=== PATIENT | male | born 1975 | race Hispanic/Latino ===

== ENCOUNTER 2017-10-01 21:33 | Inpatient (IN) | payer MEDICAID ==
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
[2017-10-02 00:35] VITALS: O2SAT 100
--- NOTE | 2017-10-02 05:36 | PCM.BM ---
<Kim Carmonanaresh - Last Filed: 10/02/17 05:33> Treatment Plan Problems - Problems identified on initial assessmt Hopelessness/Helplessness Date Initiated: 10/02/17 Time Initiated: 05:34 Assessment reference: NA Status: Active Feelings of Worthlessness Date Initiated: 10/02/17 Time Initiated: 05:34 Assessment reference: NA Status: Active Ineffective Coping Date Initiated: 10/02/17 Time Initiated: 05:34 Assessment reference: NA Status: Active Social Isolation Date Initiated: 10/02/17 Time Initiated: 05:35 Assessment reference: NA Status: Active Treatment assets and liabiliti Patient Assests: cooperative, self-reliant, ADL independent, negotiates basic needs, cognitively intact Patient Liabilities: live alone, physical pain, financial problems, poor support system, substance abuse, medical problems - Milieu Protocol Maintain good personal hygiene: daily Encourage regular showers, daily Remind patient to perform daily oral care, daily Assist patient to perform ADL's Conduct patient checks and document Observation sheet: Q15 minutes Maintain personal safety: every shift Educate patient to report safety concerns to staff, every shift Monitor environment for contraband/sharps Medication safety: Monitor for expected outcome, potential side effects: every shift, Assess barriers to learning: every shift, Assess readiness for medication education: every shift Discharge/Continuing Care - Education Needs Education Needs: Patient Medication, Patient Diagnosis/Disease Process, Patient Coping Skills, Patient Anger Management skills, Patient Placement options, Patient Community resources, Patient Activities of Daily Living, Patient Pain, Patient Nutrition, Patient Health Practices/Safety, Patient Personal Hygiene/ Grooming, Patient Aftercare Safety Plan - Discharge Discharge Criteria: Tolerates medication w/o severe side effects, Free of Suicidal thoughts, Free of Homicidal thoughts, Free of paranoid thoughts, Free of agitation, Normal sleep pattern, Ability to care for self <Gale Britt - Last Filed: 10/02/17 09:11> - Diagnosis (1) MDD (major depressive disorder) Status: Acute Interventions: 10/02/17 09:11 Major Depression: Psychoeducation Psychopharmacology/adjustment of medications as needed/ monitoring possible side effects Evaluate pt on daily basis Compliance with medications and follow up appointments Suicide and homicide risk assessment and prevention Relapse prevention Reduction of symptoms Improve functional status Family involvement As outpatient: cognitive behavioral therapy (2) Polysubstance abuse Status: Acute Interventions: 10/02/17 09:12 Monitoring withdrawal symptoms Medical detoxification Pharmacotherapy for alcohol/benzos/opioid dependence Maintaining sobriety Relapse prevention Possible rehabilitation Motivational interviewing 12-step programs: AA meetings <Octavia Vallejo - Last Filed: 10/02/17 17:26> Family Contact Family involvement: Patient does not wish Family/SO involvement <Sherry Brooks - Last Filed: 10/05/17 15:46>
[2017-10-02 06:50] LABS: GLUCOSE,FASTING 89 mg/dL (65-110); HDL CHOLESTEROL 42 mg/dL (29-60)
[2017-10-02 06:59] VITALS: RESP 20
[2017-10-02 07:00] LABS: LDL CHOLESTEROL 88 mg/dL (0-129)
[2017-10-02] MEDS: Multivitamin Therapeutic Tab PO SCH (08:54)
[2017-10-02] MEDS: Divalproex 250 mg DR (BID formulation) PO SCH ×2 (08:54→16:35)
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
--- NOTE | 2017-10-02 16:29 | CON ---
DATE: HISTORY OF PRESENT ILLNESS: I was called to the Psych unit to do medical consult on this young man. He is a 42-year-old white male who comes to the hospital overdosed on crystal methamphetamine and he was depressed, not feeling well and just overall very depressed. PAST MEDICAL HISTORY: Substance abuse, alcohol abuse, spinal injury in the past. He uses everything when it comes to substance abuse. FAMILY HISTORY: No known family history. SOCIAL HISTORY: Former smoker. No alcohol, but drugs. He is all over the place with that. ALLERGIES: NO KNOWN DRUG ALLERGIES. NO KNOWN DRUG MEDS. REVIEW OF SYSTEMS: He has no fevers, no shortness of breath or cough. No chest pain or palpitations. No diarrhea, nausea, or vomiting. No problems urinating. No back pain at this time. No neck pain at this time. Although, he does have a back injury. No headache or dizziness. He is just in bed, tired, depressed. PHYSICAL EXAMINATION: GENERAL: He is well appearing, nontoxic, comfortable. Alert and oriented x3 at this time. VITAL SIGNS: Temperature 97.6, 59 pulse, 18 respiratory rate, 102/68 blood pressure, 99% O2 saturation on room air. HEENT: His head is atraumatic, normocephalic. Extraocular muscles are intact. Pupils are equal and reactive to light. His teeth are badly crystal meth. Throat is moist. NECK: Supple. HEART: Regular rate. Normal S1, S2. LUNGS: Decreased breath sounds bilaterally, but clear. No wheezes, rhonchi, or rales. ABDOMEN: Soft, nontender. Positive bowel sounds. EXTREMITIES: No edema. NEUROLOGIC: GCS is 15. Cranial nerves II-XII grossly intact. Normal speech. SKIN: Warm and dry. Fair turgor. PSYCHIATRIC: Alert and oriented x3. LYMPHATICS: Thyroid midline. No palpable appreciable lymphadenopathy. LABORATORY DATA: He has tests that were done. He has an 89 fasting sugar, 82 triglycerides, 166 cholesterol, 88 LDL, HDL 42, TSH is 1.38. He has a toxicology of alcohol less than 10, that is what I did. I ordered a complete blood test and a urine test and we will see how he does. ASSESSMENT: Presently, he is just depressed as per Psychiatry. Currently they have him on Ativan, Depakote, folic acid, Geodon, Librium, Pepcid, Prozac, Remeron, Risperdal, Sonata, Thera-Tabs, and vitamin B1 and hopefully, he will continue to improve with his depression and not use any more drugs in the future. We will follow. Sergio Cobb DO MTDMandi
[2017-10-03 07:14] LABS: HEMOGLOBIN 13.9 g/dL (14.0-18.0); MEAN CELL VOLUME 90.2 fl (80.0-105.0); MEAN CORPUSCULAR HEMOGLOBIN 30.9 pg (25.0-35.0); MEAN CORPUSCULAR HGB CONC 34.2 g/dl (31.0-37.0); MEAN PLATELET VOLUME 9.1 fl (7.0-11.0); RBC 4.5 10^6/uL (3.5-6.1); RED CELL DISTRIBUTION WIDTH 13.4 % (11.5-14.5); WHITE BLOOD COUNT 9.3 10^3/ul (4.5-11.0)
[2017-10-03 07:35] LABS: ALB/GLOB RATIO 1.4 (1.1-1.8); ALT/SGPT 29 U/L (7-56); AST/SGOT 24 U/L (17-59); BLOOD UREA NITROGEN 26 mg/dL (7-21); CALCIUM 8.9 mg/dL (8.4-10.5); GFR AFRICAN-AMERICAN > 60; GFR NON-AFRICAN AMERICAN > 60
[2017-10-03] MEDS: Divalproex 250 mg DR (BID formulation) PO SCH ×2 (08:34→16:21)
[2017-10-03] MEDS: Multivitamin Therapeutic Tab PO SCH (08:35)
--- NOTE | 2017-10-03 09:07 | PCM.PYCHPN ---
Psychiatric Progress Note - Psychiatric Progress Note Patient seen today, length of contact: 25 min Problems Identified/Issues Discussed: I reviewed assessment and recent notes. Patient has generally kept a low profile on the unit. He is a little labile and irritable but there have been no major behavioral issues. He is oriented x3 during my visit today. He denies any new concerns, discomfort or pain. Appearance is unkempt. Patient reports that he has been sleeping well. Thought process is coherent and responses are brief, mildly disengaged but consistently relevant to questioning. Delusions were not elicited. Diagnostic Results: rule out major depressive disorder Rule out substance-induced mood disorder Polysubstance abuse and dependence Alcohol use disorder Rule out antisocial personality disorder Substance-induced psychosis r/o bipolar disorder Medication Change: No Medical Record Reviewed: Yes Mental Status Examination - Cognitive Function Orientation: Person, Place, Situation, Time - Mood Mood: Depressed, Anxious - Affect Affect: Flat - Formal Thought Process Formal Thought Process: No Impairment Goal/Treatment Plan - Goal/Treatment Plan Progress Toward Problem(s) and Goals/Treatment Plan: * c/w current tx and plan * Reviewed recent vitals, noted below: Selected Entries 10/03/17 06:39 Temperature 97.7 F Pulse Rate 59 L Respiratory 20 Rate Blood Pressure 97/57 L * New weekend lab results Laboratory Results - last 24 hr 10/02/17 10/03/17 10/03/17 06:00 07:00 07:00 WBC 9.3 RBC 4.50 Hgb 13.9 L Hct 40.6 L MCV 90.2 MCH 30.9 MCHC 34.2 RDW 13.4 Plt Count 326 MPV 9.1 Sodium 140 Potassium 4.2 Chloride 103 Carbon Dioxide 27 Anion Gap 14 BUN 26 H Creatinine 0.8 Est GFR ( Amer) > 60 Est GFR (Non-Af Amer) > 60 Random Glucose 83 Calcium 8.9 Total Bilirubin 0.2 AST 24 ALT 29 Alkaline Phosphatase 56 Total Protein 6.9 Albumin 4.0 Globulin 2.9 Albumin/Globulin Ratio 1.4 RPR Nonreactive noted below:
--- NOTE | 2017-10-03 13:53 | PN ---
DATE: 10/03/2017 SUBJECTIVE: I saw him resting comfortably in bed. He slept well. He is starting to feel better. He is on a lot of Ativan 2 mg IM He is on Depakote, folic acid, Geodon, Librium, Pepcid, Prozac, Remeron, Risperdal, Sonata, Thera-Tabs and vitamin B1. He is eating well, he is walking well, improving well. No chest pain, shortness of breath or abdominal pain. OBJECTIVE: VITAL SIGNS: Temperature is 97.7, 90 pulse, 97/57 blood pressure, 20 respiratory rate, 100% O2 sat on room air. HEENT: His head is atraumatic, normocephalic. HEART: Regular rate. LUNGS: Decreased breath sounds, but clear. ABDOMEN: Soft. EXTREMITIES: No edema. DATA: He has a 9.3 white count, 13.9 hemoglobin, 40.6 hematocrit with 326 platelets. He has 140 sodium, potassium 4.2, BUN 26, creatinine 0.8. GFR is greater than 60. Sugar is 83, calcium is 8.9, total bili is 0.2. AST is 24, ALT is 29, alkaline phosphatase is 56, total protein 6.9. Thyroid is 1.38. RPR is nonreactive. He has to drink a little more water. He is a little bit renal insufficient so he will be instructed to drink more water. We will continue with aggressive treatment and care as per Psychiatry. He had major depression, polysubstance abuse, renal insufficiency, a little dehydration. We will continue with aggressive treatment and care. We will follow. Sergio Cobb DO [facility]
[2017-10-03 16:23] LABS: URINE BILIRUBIN NEGATIVE (NEGATIVE); URINE BLOOD NEGATIVE (NEGATIVE); URINE GLUCOSE (UA) NEGATIVE (NEGATIVE); URINE LEUKOCYTE ESTERASE NEGATIVE Leu/uL (NEGATIVE); URINE PROTEIN NEGATIVE mg/dL (<30 mg/dL); URINE UROBILINOGEN 0.2 E.U./dL (<1 E.U./dL)
[2017-10-03 16:25] LABS: URINE APPEARANCE CLEAR (CLEAR); URINE COLOR YELLOW (YELLOW)
[2017-10-04] MEDS: Multivitamin Therapeutic Tab PO SCH (08:59)
[2017-10-04] MEDS: Divalproex 250 mg DR (BID formulation) PO SCH ×2 (08:59→16:19)
--- NOTE | 2017-10-04 09:15 | PCM.PYCHPN ---
Psychiatric Progress Note - Psychiatric Progress Note Patient seen today, length of contact: 25 min Patient Chief Complaint: "still depressed" Problems Identified/Issues Discussed: I reviewed recent notes. Patient has generally kept a low profile on the unit. He attends groups without much engagement and there have been no major behavioral issues. He remains unkempt and oriented x3 during my visit today. Remains depressed but not suicidal. Reports minimal improvement in symptoms and states "it's too early to tell if the medications are helping". He does report that he is sleeping well and denies any new side effects, discomfort or pain. Thought process is coherent and responses are brief, mildly disengaged but consistently relevant to questioning. Delusions were not elicited. Diagnostic Results: rule out major depressive disorder Rule out substance-induced mood disorder Polysubstance abuse and dependence Alcohol use disorder Rule out antisocial personality disorder Substance-induced psychosis r/o bipolar disorder Medication Change: No Medical Record Reviewed: Yes Mental Status Examination - Cognitive Function Orientation: Person, Place, Situation, Time Attention: WNL Concentration: WNL Association: Loose Fund of Knowledge: Poor - Mood Mood: Depressed, Anxious - Affect Affect: Flat - Speech Speech: Appropriate - Formal Thought Process Formal Thought Process: No Impairment - Suicidal Ideation Suicidal Ideation: No - Homicidal Ideation Homicidal Ideation: No Goal/Treatment Plan - Goal/Treatment Plan Progress Toward Problem(s) and Goals/Treatment Plan: * c/w current tx and plan * Appreciate f/u by Dr. Cobb on 10/03/17 * Reviewed recent vitals, noted below: Selected Entries 10/03/17 10/03/17 06:39 16:42 Temperature 97.7 F Pulse Rate 59 L 66 Respiratory 20 Rate Blood Pressure 97/57 L 103/65 * New weekend lab results Laboratory Results - last 24 hr 10/02/17 10/03/17 10/03/17 06:00 07:00 07:00 WBC 9.3 RBC 4.50 Hgb 13.9 L Hct 40.6 L MCV 90.2 MCH 30.9 MCHC 34.2 RDW 13.4 Plt Count 326 MPV 9.1 Sodium 140 Potassium 4.2 Chloride 103 Carbon Dioxide 27 Anion Gap 14 BUN 26 H Creatinine 0.8 Est GFR ( Amer) > 60 Est GFR (Non-Af Amer) > 60 Random Glucose 83 Calcium 8.9 Total Bilirubin 0.2 AST 24 ALT 29 Alkaline Phosphatase 56 Total Protein 6.9 Albumin 4.0 Globulin 2.9 Albumin/Globulin Ratio 1.4 RPR Nonreactive
--- NOTE | 2017-10-04 10:22 | PN ---
DATE: 10/04/2017 SUBJECTIVE: I saw him during breakfast, he slept very well last night. He is in good spirits. He has no new complaints except that he needs a pair of pants. He says he came to the hospital without any pants, he has to understand that. He is on Ativan, Depakote, folic acid, Geodon, Librium, Pepcid, Prozac, Remeron, Risperdal, Sonata, Thera-Tabs and vitamin B1. He is eating well. He is feeling better, more refreshed and thinking better and slept well. PHYSICAL EXAMINATION: VITAL SIGNS: 97.5 temp, 60 pulse, 89/51 blood pressure, 20 respiratory rate. HEENT: Head is atraumatic, normocephalic. HEART: Regular rate. LUNGS: Decreased breath sounds. ABDOMEN: Soft. EXTREMITIES: No edema. LABORATORY DATA: He had labs yesterday, he did fairly well. PLAN: He is being seen by Psychiatry and had adjusted his medicines. I discussed this with the nurse to see if we get him a pair of pants and I encouraged him to participate, take the medications. I am glad at this time to feel better, and he will continue to eat well. We will follow up. Sergio Cobb DO
[2017-10-05 07:33] VITALS: TEMP 97.6
[2017-10-05] MEDS: Divalproex 250 mg DR (BID formulation) PO SCH ×2 (08:57→18:45)
[2017-10-05] MEDS: Multivitamin Therapeutic Tab PO SCH (08:57)
--- NOTE | 2017-10-05 09:01 | PN ---
DATE: 10/05/2017 SUBJECTIVE: I saw him resting comfortably in bed. He slept fairly well. He still did not get his pants. He came in without pants, I am not sure why. Could be from all the drugs he was doing. He is on Ativan, Depakote, folic acid, Geodon, Librium, Pepcid, Prozac, Remeron, Risperdal, Sonata, Thera-Tabs, vitamin B. He tells me he is feeling better. PHYSICAL EXAMINATION: VITAL SIGNS: 97.6 temp, 52 pulse, 101/65 blood pressure, 20 respiratory rate. HEENT: His head is atraumatic, normocephalic. HEART: Regular rate. LUNGS: Clear to auscultation. ABDOMEN: Soft, nontender. Positive bowel sounds. EXTREMITIES: No edema. ASSESSMENT AND PLAN: I discussed this with the people at the psychiatric floor. They do have some pants I can gave him, so get him hooked up with some pants. His urine had no growth. He is being seen by Psychiatry. They are adjusting his medicines as needed and when capable of, I will get him ready for discharge. I do think he is improved since he has been there. We will get him some pants and he was there for major depression, polysubstance abuse, renal insufficiency. He knows not to do illicit drugs anymore. Sergio Cobb DO
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
[2017-10-06] MEDS: Divalproex 250 mg DR (BID formulation) PO SCH ×2 (09:16→17:53)
[2017-10-06] MEDS: Multivitamin Therapeutic Tab PO SCH (09:17)
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
--- NOTE | 2017-10-06 15:35 | PN ---
DATE: 10/06/2017 SUBJECTIVE: I saw Filiberto sitting out of the bed in a chair. He is doing well. He tells me he feels great that he has pants. He is on Ativan, Depakote, folic acid, Geodon, Librium, Pepcid, Prozac, Remeron, Risperdal, Sonata, Thera Tabs, vitamin B1. PHYSICAL EXAMINATION VITAL SIGNS: Temperature 97.6, 62 pulse, 101/65 blood pressure, 20 respiratory rate. HEENT: His head is atraumatic, normocephalic. HEART: Regular rate. LUNGS: Decreased breath sounds, but clear to auscultation. ABDOMEN: Soft. EXTREMITIES: No edema. He is feeling better mentally. Also, we talked he is going to go into rehab to get rid of drugs. He is kind of happy about that, being a very good thing for him to do. He has been seen by Psychiatry. They are adjusting his medications and unhappy that he is going to rehab. He is here for depression, polysubstance abuse, renal insufficiency. Sergio Cobb DO
[2017-10-07] MEDS: Multivitamin Therapeutic Tab PO SCH (09:07)
[2017-10-07] MEDS: Divalproex 250 mg DR (BID formulation) PO SCH ×2 (09:07→15:51)
--- NOTE | 2017-10-07 11:38 | PN ---
DATE: 10/07/2017 SUBJECTIVE: I saw Filiberto in bed in the psychiatric floor. He is doing much better. He is feeling better. He has got pants. He is walking around. He is in good spirits. He is telling me he wants going to [place] for this detox to get rid of the drugs that he has been doing and he is very excited about it. He has been getting Ativan, Depakote, folic acid, Geodon, Librium, Pepcid, Prozac, Remeron, Risperdal, Sonata, Thera-Tabs and vitamin B1. OBJECTIVE: VITAL SIGNS: He has a 97.6 temperature, 56 pulse, 95/54 blood pressure, 20 respiratory rate. HEENT: Head is atraumatic, normocephalic. HEART: Regular rate. LUNGS: Decreased breath sounds, but clear. ABDOMEN: Soft. EXTREMITIES: No edema. He is doing better mentally and I think physically, he is doing well. As per Psychiatry, I am happy that he wants to go to a drug rehab facility, I think it is wonderful and hopefully as per Psychiatry there in [place] to this facility and we will continue aggressive treatment and care on Filiberto Khan who had multiple issues; major depression disorder, polypharmacy abuse, renal insufficiency and I do think he is improving. I encouraged him to participate, take his medicines and he is looking forward to rehab. Sergio Cobb DO [email or web address]
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
[2017-10-08] MEDS: Divalproex 250 mg DR (BID formulation) PO SCH ×2 (08:44→17:46)
[2017-10-08] MEDS: Multivitamin Therapeutic Tab PO SCH (08:48)
--- NOTE | 2017-10-08 10:27 | PN ---
DATE: 10/08/2017 SUBJECTIVE: I saw him sitting out of bed, eating his breakfast. He is feeling well, in good spirits. He was waiting to go to a rehab facility. They are going to come and pick him up here at [place]. He is on Ativan, Depakote, folic acid, Geodon, Librium, Pepcid, Prozac, Remeron, Risperdal, Sonata, Thera-Tabs and vitamin B1. PHYSICAL EXAMINATION: VITAL SIGNS: Temperature 97.6, 76 pulse, 104/63 blood pressure, 20 respiratory rate. HEENT: Head is atraumatic, normocephalic. HEART: Regular rate. LUNGS: Clear to auscultation. ABDOMEN: Soft. EXTREMITIES: No edema. He definitely feels motivated. He does not want to go back on these drugs again. He is looking forward to go into a rehab facility as per Psychiatry when they get this arranged and adjustment in his medications. We are attempting on rehab placement. Sergio Cobb DO
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
[2017-10-08 16:33] VITALS: BP 122/89; PULSE 66
--- NOTE | 2017-10-09 08:46 | PN ---
DATE: 10/09/2017 SUBJECTIVE: I saw him resting comfortably in bed. He slept well. He tells me he is leaving today to go to [place] for a rehab that was arranged by Psychiatry, which I think is a very good thing to do. MEDICATIONS: He is on Ativan, Depakote, folic acid, Geodon, Librium, Pepcid, Prozac, Remeron, Sonata, Thera-Tabs and vitamin B1. PHYSICAL EXAMINATION: VITAL SIGNS: He has a 97.6 temp, 66 pulse, 122/89 blood pressure, 20 respiratory rate. HEENT: His head is atraumatic, normocephalic. HEART: Regular rate. LUNGS: Decreased breath sounds. ABDOMEN: Soft. EXTREMITIES: No edema. ASSESSMENT AND PLAN: He is going to go on Ativan, Depakote, folic acid, Geodon, Librium, Pepcid, Prozac, Remeron, Risperdal, Sonata, Thera-Tabs and vitamin B1. I encouraged him to participate very well in the rehab and not to go back to drugs change his strength bring him back into that and he seems motivated. Hopefully, he will do very well. He has major depression, polysubstance abuse, renal insufficiency. He has spinal injury. Sergio Cobb DO MTDMandi
[2017-10-09] MEDS: Multivitamin Therapeutic Tab PO SCH (08:59)
[2017-10-09] MEDS: Divalproex 250 mg DR (BID formulation) PO SCH (09:00)
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
== END 2017-10-09 13:16 | DRG 426 ==
LOC: ED 21:33 → ERH 22:35 → PSYC 23:55
PROVIDERS: ADMIT Psychiatry & Neurology Psychiatry; ATTEND Psychiatry & Neurology Psychiatry
DX: F32.9 Major depressive disorder, single episode, unspecified (principal); L89.90 Pressure ulcer of unspecified site, unspecified stage; N31.9 Neuromuscular dysfunction of bladder, unspecified; T50.991A Poisoning by other drugs, medicaments and biological substances, accidental (unintentional), initial encounter; F10.10 Alcohol abuse, uncomplicated; F19.159 Other psychoactive substance abuse with psychoactive substance-induced psychotic disorder, unspecified; F41.9 Anxiety disorder, unspecified; F60.2 Antisocial personality disorder; G47.00 Insomnia, unspecified; K21.9 Gastro-esophageal reflux disease without esophagitis; N28.9 Disorder of kidney and ureter, unspecified; Z79.899 Other long term (current) drug therapy; F17.210 Nicotine dependence, cigarettes, uncomplicated